=== PATIENT | female | born 1930 | race Caucasian/White ===

== ENCOUNTER 2016-05-13 12:31 | Emergency (ER) | payer MEDICARE, OTHER ==
[~2016-05-13] VITALS: Ht 147.3 cm; Wt 50.7 kg
[~2016-05-13 12:31] MED LIST: ASPI81TA82 PO; CLOP75 PO; GLUCTAB OR; GLYB1.2538 PO; LISI2.5T55 PO; NIAC50TA PO; SULF1TAB47 PO; SYNT25TA
[2016-05-13 12:44] VITALS: BP 126/54; PULSE 67; RESP 18; TEMP 98.1; O2SAT 96
[2016-05-13 12:57] LABS: BLOOD, URINE LARGE (NEG); GLUCOSE,URINE 250 mg/dL (NEG); KETONE, URINE 15 mg/dL (NEG); NITRITE,URINE NEG (NEG); PH, URINE 5.5 (5.0-8.5)
[2016-05-13 13:02] LABS: METHOD OF COLLECTION CLEAN CATCH; URINE COLOR YELLOW (YELLW/STRAW)
[2016-05-13 13:03] LABS: COMMENT (UR) CULTURE INDICATED; CULTURE IF INDICATED CULTURE INDICATED; RBC, URINE 0-3 /hpf (0-3)
--- NOTE | 2016-05-13 13:25 | PD ---
HPI Chief Complaint: Complaint Time Seen by Provider: 13:12 Travel History International Travel<30 days: No Contact w/Intl Traveler<30days: No Traveled to known affect area: No History of Present Illness HPI This 85-year-old female says she had a cough for the last 2 weeks. She's had a persistent cough and felt a little bit short of breath yesterday. She has not smoked for 40-50 years. She does have a history of heart disease she's had stents in the past but has not had any recent chest pain. She also has complaint of dysuria and frequency for 2 days. She has a history of urinary tract infection. She is not having any chest pain. PFSH Past Medical History Cancer: Yes (BREAST) High Cholesterol: Yes Coronary Artery Disease: Yes Diabetes: Yes Past Surgical History Mastectomy: Yes (BILATERAL) Social History Alcohol Use: No Tobacco Use: No Substance Use: No Allergies-Medications (Allergen,Severity, Reaction): Coded Allergies: No Known Allergies (Unverified , 05/13/16) Reported Meds & Prescriptions Reported Meds & Active Scripts Active Active Prescriptions or Reported Medications Unobtainable Review of Systems General / Constitutional: No: Fever, Chills Eyes: No: Diploplia HENT: No: Headaches Cardiovascular: No: Chest Pain or Discomfort, Edema Respiratory: Positive: Cough, Shortness of Breath, No: Hemoptysis Gastrointestinal: No: Vomiting, Diarrhea Genitourinary: Positive: Urgency, Frequency Skin: No Rash, No Itching Neurologic: No: Weakness Hematologic/Lymphatic: No: Easy Bruising Physical Exam Narrative GENERAL: Thin female no acute distress SKIN: Focused skin assessment warm/dry. HEAD: Atraumatic. Normocephalic. EYES: Pupils equal and round. No scleral icterus. No injection or drainage. ENT: No nasal bleeding or discharge. Mucous membranes pink and moist. NECK: Trachea midline. No JVD. CARDIOVASCULAR: Regular rate and rhythm. No murmur appreciated. RESPIRATORY: No accessory muscle use. Clear to auscultation. Breath sounds equal bilaterally. GASTROINTESTINAL: Abdomen soft, non-tender, nondistended. Hepatic and splenic margins not palpable. MUSCULOSKELETAL: No obvious deformities. No clubbing. No cyanosis. No edema. NEUROLOGICAL: Awake and alert. No obvious cranial nerve deficits. Motor grossly within normal limits. Normal speech. PSYCHIATRIC: Appropriate mood and affect; insight and judgment normal. Data Data Last Documented VS Vital Signs Date Time Temp Pulse Resp B/P Pulse Ox O2 Delivery O2 Flow Rate FiO2 05/13/16 12:44 98.1 67 18 126/54 96 Orders Urinalysis - C+S If Indicated (05/13/16 12:47) Urine Culture (05/13/16 12:52) Chest, Pa & Lat (05/13/16 13:22) Cephalexin (Keflex) (05/13/16 14:00) Labs Laboratory Tests Test 05/13/16 12:52 Urine Collection Type CLEAN CATCH Urine Color YELLOW Urine Turbidity CLOUDY Urine pH 5.5 Urine Specific [place] 1.034 Urine Protein 100 mg/dL Urine Glucose (UA) 250 mg/dL Urine Ketones 15 mg/dL Urine Occult Blood LARGE Urine Nitrite NEG Urine Bilirubin NEG Urine Leukocyte Esterase MOD Urine RBC 0-3 /hpf Urine WBC 25-49 /hpf Microscopic Urinalysis Comment CULTURE INDICATED MDM Medical Decision Making Medical Screen Exam Complete: Yes Emergency Medical Condition: Yes Medical Record Reviewed: Yes Differential Diagnosis Differential includes UTI, bronchitis, pneumonia Narrative Course Chest x-rays read as negative. Impression is uti, upper respiratory infection Diagnosis Primary Impression: Urinary tract infection Qualified Code: N30.00 - Acute cystitis without hematuria Additional Impression: Upper respiratory infection Qualified Code: J06.9 - Upper respiratory tract infection, unspecified type Scripts Cephalexin (Keflex)500 Mg [id number] Mg PO Q6H #28 CAP Ref 0 Prov:Vipul Varghese MD 05/13/16 Disposition: 01 DISCHARGE HOME Condition: Stable Vipul Varghese MD May 13, 2016 13:25
[2016-05-13] MEDS ORDERED: CEPHALEXIN MONOHYDRATE 500 MG CAP PO ONE (14:00)
--- NOTE | 2016-05-13 14:06 | RADHPO ---
EXAM DATE/TIME: 05/13/2016 13:50 [facility] COMPARISON: No previous studies available for comparison. INDICATIONS : Short of breath, cough, chest pains MEDICAL HISTORY : Carcinoma, breast. SURGICAL HISTORY : Mastectomy, left. ENCOUNTER: Initial ACUITY: 2 weeks PAIN SCORE: 4/10 LOCATION: Bilateral chest FINDINGS: PA and lateral views of the chest demonstrate the lungs to be symmetrically aerated without evidence of mass, infiltrate or effusion. The cardiomediastinal contours are unremarkable. Osseous structure s are intact. CONCLUSION: No acute disease. Dereje Mayfield MD FACR on May 13, 2016 at 14:04 Board Certified Radiologist. This report was verified electronically.
[2016-05-13] MEDS ORDERED: CEPH-460 PO (14:15)
== END 2016-05-13 14:22 | disposition home or self-care (01) ==
LOC: PHED 12:31
DX: N30.00 Acute cystitis without hematuria (principal); J06.9 Acute upper respiratory infection, unspecified; R05 Cough; R06.02 Shortness of breath; E78.00 Pure hypercholesterolemia, unspecified; Z86.79 Personal history of other diseases of the circulatory system; Z85.3 Personal history of malignant neoplasm of breast; Z87.440 Personal history of urinary (tract) infections
CPT/HCPCS: 71020; 81001; 87086; 99283

== ENCOUNTER 2017-02-11 16:49 | Emergency (ER) | payer MEDICARE ==
[~2017-02-11] VITALS: Ht 147.3 cm; Wt 49.5 kg
[~2017-02-11 16:49] MED LIST changes: -ASPI81TA82 PO; +CEPH-460 PO; -CLOP75 PO; -GLUCTAB OR; -GLYB1.2538 PO; -LISI2.5T55 PO; -NIAC50TA PO; -SULF1TAB47 PO; -SYNT25TA
[2017-02-11 16:51] VITALS: BP 127/57; PULSE 70; RESP 16; TEMP 97.8; O2SAT 97
--- NOTE | 2017-02-11 17:12 | PD ---
HPI Chief Complaint: Cold / Flu Symptoms Time Seen by Provider: 17:12 Travel History International Travel<30 days: No Contact w/Intl Traveler<30days: No Traveled to known affect area: No History of Present Illness HPI 86-year-old female came to the emergency room with history of flulike symptoms that she describes as vomiting that started 4 days ago. Patient says the vomiting has subsided but the next day she started having diarrhea and the diarrhea still continues. She is having 4-6 episodes of watery stool daily. Today she had 4 episodes so far. Patient says that whenever she is eating or drinking it goes right through her. No history of blood in her stool. There has been sick people she has been in contact with at her [facility]. No history of fever or chills. No history of cough. Patient does not recall being on antibiotics recently. Vital signs were relatively stable. Patient also complains of some dizziness that she describes as vertigo. She has history of vertigo. This is not positional. She seemed comfortable currently. [facility] Past Medical History Narrative Medical List of her past medical, surgical, social and family history is reviewed from the nursing note. Hx Anticoagulant Therapy: Yes (PLAVIX AND ASA) Cancer: Yes (BREAST) Cardiovascular Problems: Yes (STENTS) High Cholesterol: Yes Coronary Artery Disease: Yes Diabetes: Yes Patient Takes Glucophage: No Diminished Hearing: No ?: Not Past Surgical History Coronary Stent: Yes Mastectomy: Yes (BILATERAL) Social History Alcohol Use: No Tobacco Use: No Substance Use: No Allergies-Medications (Allergen,Severity, Reaction): Coded Allergies: No Known Allergies (Unverified Adverse Reaction, Unknown, 02/11/17) Comments No known drug allergies. Reported Meds & Prescriptions Reported Meds & Active Scripts Active Meclizine (Meclizine HCl) 25 Mg Tab 25 Mg PO TID PRN 10 Days Reported Lipitor (Atorvastatin Calcium) 10 Mg Tab 10 Mg PO HS Lisinopril 2.5 Mg Tab 2.5 Mg PO DAILY Nexium (Esomeprazole DR) 40 Mg Capdr 40 Mg PO DAILY Plavix (Clopidogrel Bisulfate) 75 Mg Tab 75 Mg PO DAILY Ativan (Lorazepam) 0.5 Mg Tab 0.25 Mg PO BID Aspirin 81 Mg Chew 81 Mg CHEW DAILY Narrative Medication Awaiting for the nurse to do the medical reconciliation. Review of Systems Except as stated in HPI: all other systems reviewed are Neg Gastrointestinal: Positive: Diarrhea Physical Exam Narrative GENERAL: Awake, alert, elderly, anxious SKIN: Focused skin assessment warm/dry. HEAD: Atraumatic. Normocephalic. EYES: Pupils equal and round. No scleral icterus. No injection or drainage. ENT: No nasal bleeding or discharge. Mucous membranes pink and moist. NECK: Trachea midline. No JVD. CARDIOVASCULAR: Regular rate and rhythm. No murmur appreciated. RESPIRATORY: No accessory muscle use. Clear to auscultation. Breath sounds equal bilaterally. GASTROINTESTINAL: Abdomen soft, non-tender, nondistended. Hepatic and splenic margins not palpable. MUSCULOSKELETAL: No obvious deformities. No clubbing. No cyanosis. No edema. NEUROLOGICAL: Awake and alert. No obvious cranial nerve deficits. Motor grossly within normal limits. Normal speech. PSYCHIATRIC: Appropriate mood and affect; insight and judgment normal. Data Data Last Documented VS Orders Orders Complete Blood Count With Diff (02/11/17 17:31) Comprehensive Metabolic Panel (02/11/17 17:31) Sodium Chlor 0.9% 1000 Ml Inj (Ns 1000 M (02/11/17 17:45) Influenzae A/B Antigen (02/11/17 17:31) Meclizine (Antivert) (02/11/17 18:45) Ed Discharge Order (02/11/17 18:40) Labs Laboratory Tests Test 02/11/17 17:44 White Blood Count 6.2 TH/MM3 Red Blood Count 4.05 MIL/MM3 Hemoglobin 11.3 GM/DL Hematocrit 35.8 % Mean Corpuscular Volume 88.2 FL Mean Corpuscular Hemoglobin 27.9 PG Mean Corpuscular Hemoglobin Concent 31.7 % Red Cell Distribution Width 13.6 % Platelet Count 267 TH/MM3 Mean Platelet Volume 7.0 FL Neutrophils (%) (Auto) 57.3 % Lymphocytes (%) (Auto) 30.3 % Monocytes (%) (Auto) 9.3 % Eosinophils (%) (Auto) 2.3 % Basophils (%) (Auto) 0.8 % Neutrophils # (Auto) 3.6 TH/MM3 Lymphocytes # (Auto) 1.9 TH/MM3 Monocytes # (Auto) 0.6 TH/MM3 Eosinophils # (Auto) 0.1 TH/MM3 Basophils # (Auto) 0.0 TH/MM3 CBC Comment DIFF FINAL Differential Comment Blood Urea Nitrogen 15 MG/DL Creatinine 0.97 MG/DL Random Glucose 84 MG/DL Total Protein 7.0 GM/DL Albumin 3.6 GM/DL Calcium Level 8.8 MG/DL Alkaline Phosphatase 147 U/L Aspartate Amino Transf (AST/SGOT) 37 U/L Alanine Aminotransferase (ALT/SGPT) 50 U/L Total Bilirubin 0.5 MG/DL Sodium Level 140 MEQ/L Potassium Level 3.9 MEQ/L Chloride Level 108 MEQ/L Carbon Dioxide Level 24.0 MEQ/L Anion Gap 8 MEQ/L Estimat Glomerular Filtration Rate 55 ML/MIN MDM Medical Decision Making Medical Screen Exam Complete: Yes Emergency Medical Condition: Yes Medical Record Reviewed: Yes Differential Diagnosis C. difficile colitis, viral illness, influenza Narrative Course 6:13 PM awaiting for the blood test results to come back. I've ordered for a C. difficile test as well if she patient has a bowel movement. She is getting IV fluid 1 L bolus. 6:40 PM patient has not had anymore bowel movements in the department. I am comfortable discharging her home. She requested to get one Antivert since hers have . I'll give her a new prescription. Procedures EKG Prior to Arrival: No Diagnosis Primary Impression: Diarrhea Qualified Codes: R19.7 - Diarrhea, unspecified Additional Impression: Vertigo Referrals: Primary Care Physician 2 days Additional Instructions: Please return to the ER if condition worsens or any other new concerns. Eat [place] diet that consists of banana, rice, applesauce, toast and tea. This will help with her diarrhea. Follow-up with your primary care. Med/Other Pt SpecificInfo: Prescription(s) given Scripts Meclizine (Meclizine) 25 Mg Tab 25 MG PO TID Y for VERTIGO for 10 Days, TAB 0 Refills Prov: Shelby Silvestre MD 02/11/17 Disposition: 01 DISCHARGE HOME Condition: Stable Shelby Silvestre MD Feb 11, 2017 17:12
[2017-02-11] MEDS ORDERED: SODIUM CHLOR 0.9% 1000 ML INJ 1,000 ML IV ONE (17:45)
[2017-02-11 18:01] LABS: AUTOMATED NEUTROPHIL # 3.6 TH/MM3 (1.8-7.7); BASOPHIL % 0.8 % (0.0-2.0); EOSINOPHIL # 0.1 TH/MM3 (0-0.4); EOSINOPHIL % 2.3 % (0.0-4.0); HEMATOCRIT 35.8 % (35.0-46.0); HEMOGLOBIN 11.3 GM/DL (11.6-15.3); LYMPH % 30.3 % (9.0-44.0); LYMPHOCYTE # 1.9 TH/MM3 (1.0-4.8); MEAN CELL VOLUME 88.2 FL (80.0-100.0); MEAN CORPUSCULAR HEMOGLOBIN 27.9 PG (27.0-34.0); MEAN CORPUSCULAR HGB CONC 31.7 % (32.0-36.0); MONO % 9.3 % (0.0-8.0); MONOCYTE # 0.6 TH/MM3 (0-0.9); NEUT % 57.3 % (16.0-70.0); PLATELET COUNT 267 TH/MM3 (150-450); RED BLOOD COUNT 4.05 MIL/MM3 (4.00-5.30); RED CELL DISTRIBUTION WIDTH 13.6 % (11.6-17.2); WHITE BLOOD COUNT 6.2 TH/MM3 (4.0-11.0)
[2017-02-11 18:11] LABS: CHLORIDE 108 MEQ/L (98-107); SODIUM (NA) 140 MEQ/L (136-145)
[2017-02-11 18:16] LABS: ALBUMIN 3.6 GM/DL (3.4-5.0); CALCIUM 8.8 MG/DL (8.5-10.1); GLUCOSE,RANDOM 84 MG/DL (74-106)
[2017-02-11 18:17] LABS: BLOOD UREA NITROGEN 15 MG/DL (7-18)
[2017-02-11 18:19] LABS: ALT (GPT) 50 U/L (10-53); AST (GOT) 37 U/L (15-37); CREATININE 0.97 MG/DL (0.50-1.00); GLOMERULAR FILTRATION RATE 55 ML/MIN (>89)
[2017-02-11 18:21] LABS: TOTAL BILIRUBIN ADULT 0.5 MG/DL (0.2-1.0)
[2017-02-11 18:22] LABS: ALKALINE PHOSPHATASE 147 U/L (45-117)
[2017-02-11] MEDS ORDERED: LORA-392 PO (18:22)
[2017-02-11] MEDS ORDERED: ASPI-516 CHEW (18:22)
[2017-02-11] MEDS ORDERED: LIPI10TA PO (18:22)
[2017-02-11] MEDS ORDERED: NEXI40CA PO (18:22)
[2017-02-11] MEDS ORDERED: PLAV75TA29 PO (18:22)
[2017-02-11] MEDS ORDERED: LISI2.5T3 PO (18:22)
[2017-02-11] MEDS ORDERED: MECL-62 PO (18:42)
[2017-02-11] MEDS ORDERED: MECLIZINE HCL 25 MG TAB PO ONE (18:45)
[2017-02-11 19:15] VITALS: BP 157/87
== END 2017-02-11 19:20 | disposition home or self-care (01) ==
LOC: PHED 16:49
DX: R19.7 Diarrhea, unspecified (principal); R42 Dizziness and giddiness; E78.00 Pure hypercholesterolemia, unspecified; I25.10 Atherosclerotic heart disease of native coronary artery without angina pectoris; E11.9 Type 2 diabetes mellitus without complications; Z79.01 Long term (current) use of anticoagulants; Z79.82 Long term (current) use of aspirin; Z85.3 Personal history of malignant neoplasm of breast; Z86.79 Personal history of other diseases of the circulatory system
CPT/HCPCS: 80053; 85025; 87804; 96360; 99284; J7030